=== PATIENT | male | born 1970 | race Caucasian/White ===

== ENCOUNTER 2021-02-28 05:08 | Inpatient (IN) ==
--- NOTE | 2021-02-24 11:24 | Anesthesiology Consultation ---
Date of Service February 24, 2021 Assessment & Plan (1) Encounter for pre-operative examination: - Check BSG AM DOS Per nursing assessment 02/22/2021, patient denies any recent travel other than local travel. No known Covid infection in the past 90 days. Patient is vaccinated for Covid. No known Covid positive contacts or Covid related symptoms. Covid test 02/24/21= results pending Chart Review Chart Review: Acceptable Risk for Surgery (pending anesthesiologist review on unconfirmed EKG (no acute issues by personal visual inspection) and preop Covid testing results ) and Patient NOT seen in Pre Admission Testing History Surgery Operation Date: 02/28/21 07:15 Proposed Procedures p Removal of Hardware Posterior L4-S1, Posterior Lumbar Decompression and Fusion L2-L4, Assesment of Fusion Mass L4-S1 with Possible Revision Fusion, Local Autograft, Allograft - Tino Hood MD Height/Weight Height: 5 ft 7 in Weight: 122.47 kg Allergies Allergy/AdvReac Type Severity Reaction Status Date / Time No Known Allergies Allergy Unknown Verified 02/22/21 16:31 Medications Home Medications Medication Instructions Recorded Confirmed Last Taken atenolol 50 mg tablet 50 mg PO BID 08/02/20 02/22/21 Unknown atorvastatin 20 mg tablet 20 mg PO QPM 08/02/20 02/22/21 Unknown cimetidine 400 mg tablet 400 mg PO BID 08/02/20 02/22/21 Unknown duloxetine 60 mg capsule,delayed 60 mg PO QPM 08/02/20 02/22/21 Unknown release gabapentin 300 mg capsule 600 mg PO HS cap 08/02/20 02/22/21 Unknown meloxicam 7.5 mg tablet (Mobic) 15 mg PO HS 08/02/20 02/22/21 Unknown tapentadol 150 mg tablet,extended 150 mg PO BID 08/02/20 02/22/21 Unknown release,12 hr (Nucynta ER) tizanidine 4 mg capsule 4 mg PO HS 08/02/20 02/22/21 Unknown gabapentin 300 mg tablet 300 mg PO QAM 02/22/21 02/22/21 Unknown lisinopril 20 1 tab PO QAM 02/22/21 02/22/21 Unknown mg-hydrochlorothiazide 25 mg tablet metformin 1,000 mg tablet 1,000 mg PO BID 02/22/21 02/22/21 Unknown Past Medical History Medical History Chronic back pain Diabetes NIIDM High blood pressure High cholesterol Morbid obesity with BMI of 40.0-44.9, adult Nausea and vomiting after administration of anesthetic agent Neurogenic claudication due to lumbar spinal stenosis Sleep apnea cpap Umbilical hernia Past Family History Family History Other No family history of adverse response to anesthesia Past Surgical History Surgical History History of lumbar spinal fusion x2--2003/2004 History of placement of ear tubes History of shoulder surgery (~1997) right History of spinal fusion History of tooth extraction partial upper/lower Hx of vasectomy Status post correction of deviated nasal septum Social History Smoking Status: Never smoker Do You Dip or Chew Tobacco: No (quit 4 yrs ago) Hx Alcohol Use: Yes alcohol intake frequency: holidays/special occasions only Hx Substance Use: No substance use type: does not use Lab Results Anesthesia Preop Results Results Anesthesia Widget: WBC 6.21 K/uL (4.8-10.8) 02/24/21 Hgb 15.2 g/dL (14.0-18.0) 02/24/21 Hct 43.2 % (42-52) 02/24/21 Plt 187 K/uL (130-400) 02/24/21 Na 140 mmol/L (136-145) 02/24/21 K 4.1 mmol/L (3.5-5.1) 02/24/21 Cl 106 mmol/L (98-107) 02/24/21 CO2 28 mmol/L (21-32) 02/24/21 BUN 16 mg/dl (7-18) 02/24/21 Creat 0.79 mg/dl (0.6-1.4) 02/24/21 Glucose Level 153 mg/dl (70-99) H 02/24/21 Blood Type A Positive 02/24/21 Antibody Screen NEGATIVE 02/24/21 Testing Electrocardiogram Date: 02/24/21 Findings: + NSR @ (67bpm ) unconfirmed
[2021-02-28] MEDS ORDERED: LR 60ML/HR IV SCH (06:00)
[2021-02-28] MEDS ORDERED: LR 15ML/HR IV SCH (06:00)
[2021-02-28] MEDS ORDERED: TRANEXAMIC ACID / 0.7% NACL 1,000 MG/100 ML BAG IV SCH (06:00)
[2021-02-28] MEDS ORDERED: TRANEXAMIC ACID 1,000 MG **IV Pre-op IV SCH (06:00)
[2021-02-28] MEDS ORDERED: MIDAZOLAM HCL 1 MG/ML 2ML VIAL ONE (06:45)
[2021-02-28] MEDS ORDERED: fentaNYL citrate 100 MCG/2 ML VIAL ONE ×5 (06:45→16:53)
[2021-02-28] MEDS ORDERED: ONDANSETRON INJ 2 MG/ML 2 ML VIAL IV PRN ×2 (06:47→18:07)
[2021-02-28] MEDS ORDERED: HYDROmorphone INJ 2 MG/ML SYR/VIAL IV PRN (06:47)
[2021-02-28] MEDS ORDERED: ePHEDrine sulfate 50 MG/ML AMP IV PRN (06:47)
[2021-02-28] MEDS ORDERED: ATROPINE SULFATE 0.1 MG/ML 10ML SYR IV PRN (06:47)
[2021-02-28] MEDS ORDERED: PROPOFOL IV EMULSION 10 MG/ML 20 ML VIAL IV ONE (06:50)
[2021-02-28] MEDS ORDERED: ROCURONIUM BROMIDE 10 MG/ML 5 ML VIAL IV ONE ×10 (06:50→10:14)
[2021-02-28] MEDS ORDERED: LIDOCAINE 2% 2 ML VIAL/AMP(20MG/ML) INFIL ONE (06:50)
[2021-02-28] MEDS ORDERED: DEXAMETHASONE SOD INJ 4 MG/ML VIAL ONE (06:54)
[2021-02-28] MEDS ORDERED: ONDANSETRON INJ 2 MG/ML 2 ML VIAL ONE ×2 (06:54→12:23)
--- NOTE | 2021-02-28 06:55 | History & Physical Bridge Note ---
Date of Service February 28, 2021 History & Physical Bridge Note I have examined the patient, reviewed the History & Physical and in the interval since the performance of the History & Physical I have noted the following changes of clinical significance: no changes noted New changes compared to last appointment: nil Musculoskeletal: 5/5 motor strength bilateral L2-S1 except right L2 4/5, left L5 4/5, right S1 4/5, left S1 4+/5. Neurologic: Sensation intact to light touch bilateral L2-S1 except right S1 1/2. Patient marked for surgery. All new questions about procedure answered. Informed consent confirmed
[2021-02-28] MEDS ORDERED: TRANEXAMIC ACID / 0.7% NACL 1000MG/100ML BAG IV ONE (06:57)
[2021-02-28] MEDS ORDERED: GELATIN SPONGE 12-7MM ONE ×2 (07:03→13:46)
[2021-02-28] MEDS ORDERED: THROMBIN FOR SOLN 20000 UNIT KIT ONE (07:03)
[2021-02-28] MEDS ORDERED: VANCOMYCIN HCL 1000MG/20ML VIAL ONE ×2 (07:03→14:31)
[2021-02-28] MEDS ORDERED: HYDROmorphone INJ 1 MG/ML SYRINGE ONE (08:28)
[2021-02-28] MEDS ORDERED: ePHEDrine sulfate 50 MG/ML SYR ONE (08:37)
[2021-02-28] MEDS ORDERED: PHENYLEPHRINE 100MCG/ML 5ML SYR ONE (09:53)
[2021-02-28] MEDS ORDERED: ALBUMIN HUMAN 5% 12.5 GM/250 ML VIAL IV ONE (10:27)
[2021-02-28] MEDS ORDERED: PHENYLEPHRINE HCL 10 MG/ML VIAL ONE (10:38)
[2021-02-28 11:35] LABS: Basophils # (auto) 0.05 K/uL (0-0.2); Basophils % (auto) 0.5 %; Eosinophils # (auto) 0.04 K/uL (0-0.5); Eosinophils % (auto) 0.4 %; Hematocrit (blood only) 35.9 % (42-52); Hemoglobin 12.1 g/dL (14.0-18.0); Immature Granulocytes # (auto) 0.06 K/uL (0.00-0.02); Immature Granulocytes % (auto) 0.6 %; Lymphocytes # (auto) 1.24 K/uL (1.2-3.4); Lymphocytes % (auto) 13.3 %; Mean Corpuscular Volume 86.1 fL (80-100); Mean Platelet Volume 11.7 fL (7.4-10.4); Monocytes # (auto) 0.18 K/uL (0.11-0.59); Monocytes % (auto) 1.9 %; Neutrophils # (auto) 7.72 K/uL (1.4-6.5); Neutrophils % (auto) 83.3 %; Platelet Count 232 K/uL (130-400); RDW Coefficient of Variation 13.1 % (11.5-14.5); RDW Standard Deviation 41.2 fL (36.4-46.3); Red Blood Count 4.17 M/uL (4.7-6.1); White Blood Count 9.29 K/uL (4.8-10.8)
[2021-02-28 11:36] LABS: Mean Corpuscular Hgb Conc 33.7 g/dL (32-36)
[2021-02-28] MEDS ORDERED: SODIUM CHLORIDE 0.9% INJ 10 ML VIAL ONE (11:42)
[2021-02-28] MEDS ORDERED: FLOSEAL HEMOSTATIC MATRIX 10ML TOP ONE (11:49)
[2021-02-28 11:50] LABS: INR 1.1 (0.9-1.1); Partial Thromboplastin Ratio 0.8; Partial Thromboplastin Time 22.1 Seconds (21.0-31.0); Prothrombin Time 10.9 Seconds (9.0-12.0)
--- NOTE | 2021-02-28 13:09 | XRay Report ---
XR lumbar spine 1V HISTORY: 50 years-old Male PORTABLE SPINE XRAY IN OR COMPARISON: Lumbar spine radiographs 08/16/2020, CT lumbar spine 08/23/2020. TECHNIQUE: 5 views of the lumbar spine FINDINGS: Posterior interbody sandra and screw fusion with discectomy changes are redemonstrated at the L4-S1 leve ls. A catheter overlies the anterior aspects of the L1-L2 disc space on the first image. Linear metal lic density needle type devices overlie the posterior elements at the level of the L1-L2 and at S1-S2 . Subsequent images demonstrate retractor devices with surgical sponges. Last images demonstrate post erior interbody screws at the L1 and L2 levels with removal of the lower lumbar spine interbody rods. The last images demonstrate a persistent surgical sponge within the posterior surgical bed soft tiss ues at the level of L5-S1. IMPRESSION: Postoperative changes as above. ACT 112: Negative or not required by law. The above report was generated using voice recognition software. It may contain grammatical, syntax o r spelling errors. Electronically signed by: David Betancourt M.D. 02/28/2021 1:08 PM
[2021-02-28] MEDS ORDERED: KETAMINE 50 MG/5 ML SYRINGE ONE (13:12)
[2021-02-28 13:39] LABS: iSTAT Creatinine 0.8 mg/dl (0.6-1.3); iSTAT Hemoglobin 10.5 g/dl (14.0-18.0); iSTAT Ionized Calcium 1.12 mmol/l (1.12-1.32); iSTAT Potassium 4.7 mmol/L (3.3-5.0)
[2021-02-28] MEDS ORDERED: ceFAZolin 3,000 MG in DEXTROSE 5% 50 ML IV ONE (15:51)
--- NOTE | 2021-02-28 16:31 | Post Operative Brief Note ---
PG Immediate Post Op with CF Date of Surgery February 28, 2021 Pre & Post Diagnosis Operation Date: 02/28/21 07:15 Pre-Op Diagnosis: Neurogenic Claudication Post-Op Diagnosis: Neurogenic Claudication I identified the patient and participated in the time-out.: Yes Procedure Operation Date: 02/28/21 07:15 Actual Procedures p POSTERIOR LUMBAR DECOMPRESSION L2-L4, REMOVAL OF HARDWARE L4-S1, REVISION POSTERIOR LUMBAR FUSION L2-S1(Not Applicable) - Tino Hood MD Surgeon Tino Hood MD Light Fixture Servicer Khoa Sosa PA-C Estimated Blood Loss 1,900 Findings Consistent with Post-Op Diagnosis Drains Gomes Catheter and Jeffry-Gordillo Drain (10fr round x2)
[2021-02-28 16:53] LABS: Hematocrit (blood only) 39.3 % (42-52); Hemoglobin 13.1 g/dL (14.0-18.0)
[2021-02-28] MEDS: fentaNYL citrate 100 MCG/2 ML VIAL IV PRN ×2 (16:59→17:05)
--- NOTE | 2021-02-28 17:27 | Anesthesiology Progress Note ---
Date of Service February 28, 2021 Anesthesia Post Procedure Vital Signs Vital Signs: Temp Pulse Pulse Resp BP BP BP 02/28/21 17:20 107 H 20 137/62 141/79 H 02/28/21 17:10 112 H 19 135/78 123/76 02/28/21 17:00 106 H 13 164/85 H 145/76 H 02/28/21 16:50 105 H 17 155/82 H 143/87 H 02/28/21 16:40 115 H 16 133/74 131/69 02/28/21 16:30 109 H 21 126/70 140/64 02/28/21 16:24 36.1 C L 120 H 20 120/66 02/28/21 05:36 36.9 C 73 20 156/98 H Pulse Ox 02/28/21 17:20 95 02/28/21 17:10 96 02/28/21 17:00 95 02/28/21 16:50 96 02/28/21 16:40 99 02/28/21 16:30 98 02/28/21 16:24 99 02/28/21 05:36 95 Pain Intensity Right Lower Back: Pain Intensity: 5 Transfer of Care Handoff Completed per policy Notes Mental Status: alert / awake / arousable Patient Amnestic to Procedure: Yes Nausea / Vomiting: adequately controlled Pain: adequately controlled Airway Patency, RR, SpO2: stable & adequate BP & HR: stable & adequate Hydration State: stable & adequate Anesthetic Complications: no major complications apparent
[2021-02-28] MEDS ORDERED: hydrOXYzine HCl 25 MG TAB PO PRN (18:07)
[2021-02-28] MEDS ORDERED: DO NOT ADMINISTER PNEUMOCOCCAL VACCINE PRN (18:07)
[2021-02-28] MEDS ORDERED: diphenhydrAMINE Capsule 25 MG CAP PO PRN (18:07)
[2021-02-28] MEDS ORDERED: ONDANSETRON 4 MG OD TAB PO PRN (18:07)
[2021-02-28] MEDS ORDERED: SOD PHOSPHATE/SOD BIPHOSPHATE ENEMA 132 ML BTL PR PRN (18:07)
[2021-02-28] MEDS ORDERED: PROMETHAZINE HCL 12.5 MG in SODIUM CHLORIDE 0.9% 50 ML IV PRN (18:07)
[2021-02-28] MEDS ORDERED: METOCLOPRAMIDE HCL INJ 5 MG/ML 2 ML VIAL IV PRN (18:07)
[2021-02-28] MEDS ORDERED: MAGNESIUM HYDROXIDE SUSP 30 ML UDC PO PRN (18:07)
[2021-02-28] MEDS ORDERED: ACETAMINOPHEN 500 MG TAB PO PRN (18:07)
[2021-02-28] MEDS ORDERED: NALOXONE HCL 0.4 MG/1 ML VIAL/CARP IV PRN (18:07)
[2021-02-28] MEDS ORDERED: LORazepam 0.5 MG/1 ML VIAL IV PRN (18:07)
[2021-02-28] MEDS ORDERED: LORazepam 0.5 MG TAB PO PRN (18:07)
[2021-02-28] MEDS ORDERED: ACETAMINOPHEN 1,000 MG/100 ML VIAL IV PRN (18:07)
[2021-02-28] MEDS ORDERED: DO NOT ADMINISTER FLU VACCINE PRN (18:07)
[2021-02-28] MEDS ORDERED: ALUMINUM/MAGNESIUM SUSP 30 ML UDC PO PRN (18:07)
[2021-02-28] MEDS ORDERED: PHARMACY GLYCEMIC MGMT CONSULT PRN (18:10)
[2021-02-28] MEDS: LACTATED RINGER'S 1,000 ML IV SCH (18:23)
[2021-02-28] MEDS ORDERED: GLUCAGON FOR INJ 1 MG VIAL IM PRN (19:00)
[2021-02-28] MEDS ORDERED: GLUCOSE 40% GEL 15 GM TUBE PO PRN (19:00)
[2021-02-28] MEDS ORDERED: GLUCOSE 10 TABS/TUBE PO PRN (19:00)
[2021-02-28] MEDS ORDERED: DEXTROSE 50% 50 ML SYRINGE IV PRN (19:00)
[2021-02-28] MEDS ORDERED: CARBOHYDRATES FOR HYPOGLYCEMIA PO PRN (19:00)
[2021-02-28] MEDS ORDERED: INSULIN GLARGINE SOLOSTAR 100 UNITS/ML 3 ML PEN SC ONE (19:15)
[2021-02-28] MEDS: HYDROmorphone INJ 0.5 MG/0.5 ML SYR IV PRN (19:15)
[2021-02-28] MEDS: INSULIN ASPART 100 UNITS/ML 3 ML PEN SC SCH ×2 (19:51→21:59)
--- NOTE | 2021-02-28 20:06 | Pharmacy Report ---
Pharmacy Glycemic Short Note 2 - Date of Service February 28, 2021 - Glycemic Short BSG Results (Last 24 hours): 02/28/21 02/28/21 02/28/21 05:28 13:13 19:06 POC Glucose 142 H 249 H POC Glucose (other) 264 H OUTPATIENT ANTIDIABETIC REGIMEN: * metformin 1000 mg PO BIDM * HbA1c ordered for tomorrow AM ASSESSMENT: * SW is a 50 year old male pod #0 s/p lumbar decompression * Received IV dexamethasone in OR * Postop BSG of 249 mg/dL * Will use aggressive Novolog parameters with overnight checks tonight * 0.4 unit/kg basal today to help cover steroids PLAN FOR INPATIENT GLYCEMIC CONTROL: * Hold outpatient oral diabetes medications * Basal insulin * Lantus 35 units SQ x 1 * Reassess in AM * Bolus insulin * NovoLog per scale ACHS or Q6hrs while NPO * Goal Range: Low 110 mg/dL - High 140 mg/dL * Correction Factor: 20 mg/dL/unit * Nutritional / Prandial insulin per carb ratio of 1 unit per 5 grams CHO consumed PLAN FOR DISCHARGE: * tbd - HbA1c pending
[2021-02-28] MEDS: GABAPENTIN 600 MG TAB PO SCH (20:38)
[2021-02-28] MEDS: DULoxetine HCL 60 MG CAP PO SCH (20:38)
[2021-02-28] MEDS: CALCIUM 600MG + VIT D 400 IU TAB PO SCH (20:38)
[2021-02-28] MEDS: DOCUSATE SODIUM/SENNA 50/8.6MG TAB PO SCH (20:38)
[2021-02-28] MEDS: ATENOLOL 50 MG TABLET PO SCH (20:39)
[2021-02-28] MEDS: ATORVASTATIN 20 MG TAB PO SCH (20:39)
[2021-02-28] MEDS: TAPENTADOL HCL ER 50 MG TABCR PO SCH (20:42)
[2021-02-28] MEDS ORDERED: tiZANidine HCL 4 MG TABLET PO SCH (21:00)
[2021-02-28] MEDS ORDERED: metFORMIN HCL 500 MG TAB PO SCH (21:00)
[2021-02-28] MEDS: CYCLOBENZAPRINE HCL 10 MG TAB PO SCH (21:59)
[2021-02-28] MEDS: ceFAZolin 2000MG 2,000 MG/15 ML SYR IV SCH (23:21)
--- NOTE | 2021-03-01 00:36 | Consultation Report ---
DATE OF CONSULTATION: 02/28/2021 CHIEF COMPLAINT: Status post back surgery. HISTORY OF PRESENT ILLNESS: This is a 50-year-old male with past medical history significant for type 2 diabetes, hyperlipidemia, testosterone deficiency, obstructive sleep apnea -- treated with BiPAP, hypertension, morbid obesity, nocturnal enuresis, history of bilateral lower back pain, history of periodic limb movement disorder, history of umbilical hernia, status post back surgery, tolerated the procedure okay, some pain at the back site. Denies any headache or neck pain. No blurred visions, no cough, no chest pain, no shortness of breath, no nausea, no abdominal pain. Says he moved his bowels yesterday, usually he is constipated because of using pain medications at home .Normal bladder movements. Currently, resting comfortably and hemodynamically stable. ALLERGIES: No known drug allergies. PAST MEDICAL HISTORY: As mentioned above. PAST SURGICAL HISTORY: Lumbosacral injection, right knee arthroscopy, multiple back surgeries, rotator cuff shoulder surgery. MEDICATIONS: The patient is on atenolol 50 mg p.o. b.i.d., atorvastatin 20 mg p.o. daily, cimetidine 400 mg p.o. b.i.d., duloxetine 60 mg p.o. a.m., gabapentin 300 mg p.o. a.m. and 600 mg p.o. at bedtime, lisinopril/hydrochlorothiazide 20/25 mg p.o. daily, meloxicam 7.5 mg p.o. at bedtime, metformin 1000 mg p.o. b.i.d., Nucynta 150 mg p.o. b.i.d., tizanidine 4 mg p.o. at bedtime, vitamin B12 1000 mcg p.o. daily, vitamin D 1 tablet p.o. b.i.d. FAMILY HISTORY: Significant for mother has cirrhosis, alcoholism and COPD; father had heart disorder; maternal grandmother had colon cancer; son has asthma; father has mental disorder; sister has mental disorder. SOCIAL HISTORY: . No smoking. Chews one can a day. No alcohol use. No drug use. REVIEW OF SYSTEMS: As per HPI. Rest of the review of systems is negative. PHYSICAL EXAMINATION: GENERAL: The patient is morbidly obese, not in acute distress. VITAL SIGNS: Temperature 37.1, pulse 105, respiratory rate 25, blood pressure 110/72, oxygen 94% on room air. HEENT: Atraumatic. NECK: No neck masses. Supple. CARDIOVASCULAR: S1 and S2 heard. Regular rate and rhythm. No murmur, no gallop. RESPIRATORY SYSTEM: Normal AP diameter. No accessory muscle use. No wheezing, no crackles. ABDOMEN: Soft, bowel sounds present, nontender, no distention. CENTRAL NERVOUS SYSTEM: Cranial nerves II-XII grossly intact, nonfocal. EXTREMITIES: No edema, no erythema. MUSCULOSKELETAL: Status post back surgery, dressings and drain intact. LABORATORY DATA: Labs done today, WBC 9.2, hemoglobin 13.1, hematocrit 39.3, platelets 232. PT 10.9, INR 1.1, APTT 22.1. Sodium 139, potassium 4.7, chloride 101, bicarbonate 23, BUN 23, creatinine 0.8, serum glucose 272, ionized calcium 1.1. SARS-CoV-2 PCR negative. ASSESSMENT AND PLAN: This is a 50-year-old male patient status post back surgery. 1. Status post back surgery: Management as per orthopedics. 2. Diabetes: Holding home metformin. Place him on insulin sliding scale and also Lantus 7 units daily. Monitor the blood sugars and adjust insulin. 3. Morbid obesity: Needs counseling. 4. History of sleep apnea: On BiPAP at bedtime. 5. History of gastroesophageal reflux disease: On cimetidine. 6. History of hyperlipidemia: On statin. 7. History of hypertension: On atenolol, lisinopril/hydrochlorothiazide. We will monitor his blood pressure. 8. History of chronic pain: Continue his home pain medications of Nucynta, tizanidine, and gabapentin. 9. Deep venous thrombosis prophylaxis and disposition as per orthopedics. Job ID: [id number] [facility]
[2021-03-01] MEDS ORDERED: INSULIN ASPART 100 UNITS/ML 3 ML PEN SC SCH (02:00)
[2021-03-01] MEDS: LACTATED RINGER'S 1,000 ML IV SCH (04:04)
[2021-03-01] MEDS: POLYETHYLENE (MIRALAX) 17 GM PACK PO SCH ×4 (06:21→20:47)
[2021-03-01] MEDS: CYCLOBENZAPRINE HCL 10 MG TAB PO SCH (06:23)
[2021-03-01 06:43] LABS: Hematocrit (blood only) 33.6 % (42-52); Hemoglobin 11.4 g/dL (14.0-18.0); Immature Granulocytes # (auto) 0.07 K/uL (0.00-0.02); Immature Granulocytes % (auto) 0.5 %; Lymphocytes % (auto) 8.3 %; Mean Corpuscular Hemoglobin 29.2 pg (25-34); Mean Corpuscular Hgb Conc 33.9 g/dL (32-36); Mean Corpuscular Volume 86.2 fL (80-100); Mean Platelet Volume 11.1 fL (7.4-10.4); Monocytes # (auto) 1.85 K/uL (0.11-0.59); Monocytes % (auto) 12.8 %; Neutrophils # (auto) 11.31 K/uL (1.4-6.5); Neutrophils % (auto) 78.4 %; Platelet Count 166 K/uL (130-400); RDW Coefficient of Variation 13.7 % (11.5-14.5); White Blood Count 14.43 K/uL (4.8-10.8)
--- NOTE | 2021-03-01 06:45 | Orthopedic Progress Note ---
Date of Service March 01, 2021 Assessment & Plan (1) Status post spinal surgery: Plan: PT for mobility standing x-rays when able drain to be monitored today, possible removal tomorrow d/c home once mobilizing well and drains out Admission and Anticipated Discharge Date Admission Date: February 28, 2021 Subjective pain well controlled. used minimal narcotics overnight no new numbness/weakness Hgb pending this AM Glucose 272 yesterday evening, pharmacy diabetes team involved hospitalist following Physical Exam Physical Exam: vitals: see vital signs section; on home BiPAP overnight dressing: mild serosang discharge drain: 50 deep/5 superficial cc/8hr vascular: no calf tenderness or swelling bilaterally. no signs of DVT Musculoskeletal: 5/5 motor strength bilateral L2-S1 except right L2 4/5, left L5 4/5, right S1 4/5, left S1 4+/5. Neurologic: Sensation intact to light touch bilateral L2-S1 except right S1 1/2. Results & Data ([facility]) Vital Signs (Past 12 Hours) Vital Signs Temp Pulse Pulse Resp BP Pulse Ox 03/01/21 03:22 37.5 C 86 17 135/79 96 03/01/21 03:08 97 H 16 95 02/28/21 22:45 105 H 25 H 94 02/28/21 22:29 37.1 C 109 H 18 110/72 94 02/28/21 21:00 37 C 118 H 141/79 H 97 02/28/21 20:00 37 C 118 H 143/79 H 96 02/28/21 19:00 37.1 C 106 H 18 142/88 H 96 Diagnostic Findings post-op x-rays pending PG Care Time/CCT Total # of Minutes Spent Total Time Spent with Patient: Total time spent is greater than 50% in coordination of care (as documented) at patient's floor/unit and/or counseling patient: Coding Level of Care Code None Diagnoses Status post spinal surgery Z98.890
[2021-03-01 07:15] LABS: Calcium 8.8 mg/dl (8.5-10.1); Creatinine Clr Calc Pharmacy 147.3 ml/min; Est GFR (African American) 124.2 ml/min; Est GFR (Non-African American) 107.1 ml/min; Potassium 4.3 mmol/L (3.5-5.1)
[2021-03-01 07:23] LABS: Estimated Average Glucose 186 mg/dl; Hemoglobin A1C 8.1 % (4.5-5.6)
[2021-03-01] MEDS: ceFAZolin 2000MG 2,000 MG/15 ML SYR IV SCH (08:06)
[2021-03-01] MEDS: LISINOPRIL/HCTZ 20/25MG 1 TAB PO SCH (08:07)
[2021-03-01] MEDS: FAMOTIDINE 20 MG TAB PO SCH ×2 (08:07→18:04)
[2021-03-01] MEDS: CALCIUM 600MG + VIT D 400 IU TAB PO SCH ×2 (08:07→20:43)
[2021-03-01] MEDS: ATENOLOL 50 MG TABLET PO SCH ×2 (08:07→20:43)
[2021-03-01] MEDS: VITAMIN B COMPLEX TAB PO SCH (08:07)
[2021-03-01] MEDS ORDERED: INSULIN GLARGINE SOLOSTAR 100 UNITS/ML 3 ML PEN SC SCH ×2 (09:00)
--- NOTE | 2021-03-01 09:12 | XRay Report ---
XR lumbar spine 2-3V CLINICAL HISTORY: post-op spine surgery; standing views when able COMPARISON STUDY: Lumbar spine radiograph February 28, 2021. FINDINGS: Previous L4-L5 and L5-S1 discectomies with interbody spacer placement are noted. Lumbar spi ne revision surgery is noted. Pedicle screw fusion from L2 through S1 is noted. There are bilateral s crews at the L2, L3, L4 and S1 levels with a right-sided screw at the L5 level. Left sandra is intact. T he right sandra does not extend through the L5 and S1 screws. There is no fracture. There are no unexpec mary radiopaque foreign bodies. IMPRESSION: Status post revision lumbar spine surgery with posterior decompression and L2-S1 pedicle screw fusion . Left sandra intact. The right sandra does not extend through the L5 and S1 screws. ACT 112: Negative or not required by law. Electronically signed by: Juan Manuel Garcia M.D. 03/01/2021 9:11 AM
[2021-03-01] MEDS: INSULIN ASPART 100 UNITS/ML 3 ML PEN SC SCH ×4 (09:36→20:44)
[2021-03-01] MEDS: TAPENTADOL HCL ER 50 MG TABCR PO SCH ×2 (09:36→20:58)
[2021-03-01] MEDS: GABAPENTIN 300 MG CAP PO SCH (10:48)
[2021-03-01] MEDS: HYDROmorphone INJ 0.5 MG/0.5 ML SYR IV PRN (10:57)
--- NOTE | 2021-03-01 12:21 | Hospitalist Progress Note ---
Date of Service March 01, 2021 Assessment & Plan (1) Neurogenic claudication due to lumbar spinal stenosis: (2) Status post spinal surgery: Plan: s/p lumbar decompression by Dr. Hood EBL 1900 POD #1 -pain/wound management per Ortho -VTE prophylaxis per Ortho, encourage early ambulation -incentive spirometry encouraged -CBC, BMP in am -PT/OT and activity restrictions per Ortho (3) DMII (diabetes mellitus, type 2): Plan: Post-operative hyperglycemia noted as a result of intraoperative dexamethasone administration. Aggressive checks and insulin coverage occurred overnight with basal/bolus insulin and he is coming down into the appropriate range. Cont management per glycemic pharmacist. A1C reflects poor control as outpatient at 8.1 with goal <6.5. Would recommend close follow-up with primary care physician as outpatient to discuss goals and recommendations for any medication changes. (4) High blood pressure: Plan: At goal on home medications to include atenolol 50mg BID, Prinzide 20/25mg daily. Cont current therapy. (5) Chronic narcotic dependence: Plan: Cont scheduled Tapentadol q12hrs per home regimen. PRN oxycodone. There is concern regarding the scheduled muscle relaxers and scheduled narcotics. Would recommend making the muscle relaxers PRN to avoid medication interactions. Cont aggressive bowel regimen post-operatively until bowel movements occur. (6) High cholesterol: Plan: Cont home atorvastatin. (7) MECHE (obstructive sleep apnea): Plan: Cont CPAP qHS (8) DVT prophylaxis: Plan: SCDs/ambulation Full Code Dispo-per Ortho spine surgeon Thank you for this consultation. We will continue to follow with the patient t hroughout this hospital stay. Anna Michael DO [facility] Hospitalist Admission and Anticipated Discharge Date Admission Date: February 28, 2021 Subjective 50 yo M with diabetes, hypertension and hyperlipidemia presents for posterior lumbar decompression by Dr. Hood. He is POD#1 and feelin well. Pain appears to be well managed w medications. He reports walking and tolerating PO. Review of Systems Review of Systems: All systems were reviewed and negative except as indicated in HPI above. Physical Exam Physical Exam: CONSTITUTIONAL: WNWD, vitals as above, generally well- appearing EYES: normal conjunctivae, no scleral icterus ENT: external ear and nose normal, MMM NECK: trachea midline RESPIRATORY: clear to auscultation bilaterally, no crackles, rales or wheezes, normal respiratory effort CARDIOVASCULAR: regular rate and rhythm, S1 and 2 heard without murmurs, gal lops or rubs, no JVD, no peripheral edema GASTROINTESTINAL: soft, nontender, no hepatomegaly, no guarding MUSCULOSKELETAL: strength intact throughout SKIN: warm and dry, no rashes NEUROLOGIC: extremities are NVI bilateral, CN 2-12 grossly intact, no sensory deficit, normal cognition, normal speech, no tremor PSYCHIATRIC: alert cooperative and oriented to person, place and time. Euthymic mood, makes good eye contact, language grossly intact, recent and remote memory grossly intact. LYMPHATIC: no LAD Results & Data Results & Data ([facility]) Vital Signs (Past 12 Hours) Vital Signs Temp Pulse Pulse Resp BP BP Pulse Ox 03/01/21 11:36 37.5 C 98 H 16 131/72 92 03/01/21 08:02 36.7 C 92 H 16 156/83 H 95 03/01/21 03:22 37.5 C 86 17 135/79 96 03/01/21 03:08 97 H 16 95 Laboratory Results Short CBC 02/28/21 03/01/21 Range/Units 16:41 06:14 WBC 14.43 H (4.8-10.8) K/uL Hgb 13.1 L 11.4 L (14.0-18.0) g/dL Hct 39.3 L 33.6 L (42-52) % Plt Count 166 (130-400) K/uL BMP 03/01/21 06:14 Sodium 137 Potassium 4.3 Chloride 108 H Carbon Dioxide 24 BUN 19 H Creatinine 0.76 Glucose 167 H Calcium 8.8 Medications Administered Current Inpatient Medications Acetaminophen (Acetaminophen 500 Mg Tab) 1,000 mg PO Q8H PRN PRN Reason: MILD Pain Scale 1,2,3 & Pre PT Stop: 03/30/21 18:06 Al Hydrox/Mg Hydrox/Simethicone (Aluminum/Magnesium Susp 30 Ml Udc) 30 ml PO Q6H PRN PRN Reason: Dyspepsia Stop: 03/30/21 18:06 Atenolol (Atenolol 50 Mg Tablet) 50 mg PO BID JANINE Stop: 03/30/21 20:59 Last Admin: 03/01/21 08:07 Dose: 50 mg Documented by: Atorvastatin Calcium (Atorvastatin 20 Mg Tab) 20 mg PO QPM JANINE Stop: 03/30/21 20:59 Last Admin: 02/28/21 20:39 Dose: 20 mg Documented by: Bisacodyl (Bisacodyl 10 Mg Supp) 10 mg MA DAILY PRN PRN Reason: Constipation Stop: 04/01/21 07:59 Cyclobenzaprine HCl (Cyclobenzaprine Hcl 10 Mg Tab) 10 mg PO Q8 JANINE Stop: 03/30/21 21:59 Last Admin: 03/01/21 06:23 Dose: 10 mg Documented by: Dextrose (Dextrose 50% 50 Ml Syringe) 25 - 50 ml IV UD PRN; Protocol PRN Reason: Hypoglycemia Protocol Stop: 03/30/21 18:59 Diphenhydramine HCl (Diphenhydramine Capsule 25 Mg Cap) 25 mg PO Q6H PRN PRN Reason: Allergic Rhinitis/Insomnia Stop: 03/30/21 18:06 Duloxetine HCl (Duloxetine Hcl 60 Mg Cap) 60 mg PO QPM JANINE Stop: 03/30/21 20:59 Last Admin: 02/28/21 20:38 Dose: 60 mg Documented by: Famotidine (Famotidine 20 Mg Tab) 20 mg PO BIDM JANINE; Protocol Stop: 03/31/21 07:59 Last Admin: 03/01/21 08:07 Dose: 20 mg Documented by: Gabapentin (Gabapentin 600 Mg Tab) 600 mg PO HS [facility] Stop: 03/30/21 20:59 Last Admin: 02/28/21 20:38 Dose: 600 mg Documented by: Gabapentin (Gabapentin 300 Mg Cap) 300 mg PO QAM [facility] Stop: 03/31/21 08:59 Last Admin: 03/01/21 10:48 Dose: 300 mg Documented by: Glucagon (Glucagon For Inj 1 Mg Vial) 1 mg IM UD PRN; Protocol PRN Reason: Hypoglycemia Protocol Stop: 03/30/21 18:59 Glucose (Glucose 40% Gel 15 Gm Tube) 15 - 30 gm PO UD PRN; Protocol PRN Reason: Hypoglycemia Protocol Stop: 03/30/21 18:59 Glucose (Glucose 10 Tabs/Tube) 4 - 8 tabs PO UD PRN; Protocol PRN Reason: Hypoglycemia Protocol Stop: 03/30/21 18:59 Lisinopril/HCTZ (Lisinopril/Hctz 20/25mg 1 Tab) 1 tab PO QAM [facility] Stop: 03/31/21 08:59 Last Admin: 03/01/21 08:07 Dose: 1 tab Documented by: Hydromorphone HCl (Hydromorphone Inj 0.5 Mg/0.5 Ml Syr) 0.5 mg IV Q3H PRN PRN Reason: MOD pain (scale 4-6) & Pre PT Stop: 03/14/21 18:06 Last Admin: 03/01/21 10:57 Dose: 0.5 mg Documented by: Hydroxyzine HCl (Hydroxyzine Hcl 25 Mg Tab) 25 mg PO Q8H PRN PRN Reason: Anxiety Stop: 03/30/21 18:06 Lactated Ringer's (Lr) 1,000 mls @ 100 mls/hr IV .Q10H JANINE Stop: 03/30/21 18:06 Last Admin: 03/01/21 04:04 Dose: 100 mls/hr Documented by: Promethazine HCl 12.5 mg/ (Sodium Chloride) 50.5 mls @ 202 mls/hr IV Q6H PRN PRN Reason: Nausea &/or Vomiting Stop: 03/30/21 18:06 Acetaminophen (Ofirmev) 1,000 mg in 100 mls @ 400 mls/hr IV Q8H PRN PRN Reason: Pain Rating 1-3 & Pre PT Stop: 03/03/21 18:06 Lorazepam (Ativan) 0.5 mg in 1 mls @ 1 mls/min IV Q8H PRN PRN Reason: Sedation/Anxiety Stop: 03/30/21 18:06 Influenza Virus Vaccine Quadrival (Do Not Administer Flu Vaccine) 1 ea N/A PRN PRN PRN Reason: Notification Stop: 03/30/21 18:06 Insulin Aspart (Insulin Aspart 100 Units/Ml 3 Ml Pen) 0 units SC ACHS [facility] Stop: 03/31/21 07:29 Last Admin: 03/01/21 09:36 Dose: 11 units Documented by: Insulin Glargine (Insulin Glargine Solostar 100 Units/Ml 3 Ml Pen) 12 units SC DAILY JANINE Stop: 03/31/21 08:59 Last Admin: 03/01/21 09:37 Dose: 12 units Documented by: Lorazepam (Lorazepam 0.5 Mg Tab) 0.5 mg PO Q8H PRN PRN Reason: sedation/anxiety Stop: 03/30/21 18:06 Magnesium Hydroxide (Magnesium Hydroxide Susp 30 Ml Udc) 30 ml PO Q24H PRN PRN Reason: Constipation Stop: 03/30/21 18:06 Metoclopramide HCl (Metoclopramide Hcl Inj 5 Mg/Ml 2 Ml Vial) 10 mg IV Q6H PRN PRN Reason: Nausea &/or Vomiting Stop: 03/30/21 18:06 Miscellaneous (Carbohydrates For Hypoglycemia ) 15 - 30 gm PO UD PRN PRN Reason: Hypoglycemia Treatment Stop: 03/30/21 18:59 Miscellaneous Information (Pharmacy Glycemic Mgmt Consult) 1 ea N/A UD PRN PRN Reason: Consult Stop: 03/30/21 18:09 Multivitamins/Minerals (Calcium 600mg + Vit D 400 Iu Tab) 1 tab PO BID JANINE Stop: 03/30/21 20:59 Last Admin: 03/01/21 08:07 Dose: 1 tab Documented by: Naloxone HCl (Naloxone Hcl 0.4 Mg/1 Ml Vial/Carp) 0.1 mg IV Q5M PRN PRN Reason: Oversedation/respiratory dep Stop: 03/30/21 18:06 Ondansetron HCl (Ondansetron Inj 2 Mg/Ml 2 Ml Vial) 4 mg IV Q6H PRN PRN Reason: Nausea &/or Vomiting Stop: 03/30/21 18:06 Ondansetron HCl (Ondansetron 4 Mg Od Tab) 4 mg PO Q6H PRN PRN Reason: Nausea Stop: 03/30/21 18:06 Oxycodone/Acetaminophen (Oxycodone/Acetaminophen 5mg/325mg Tab) 1 - 2 tab PO Q4H PRN PRN Reason: Pain & Pre PT Stop: 03/14/21 18:06 Pneumococcal Polyvalent Vaccine (Do Not Administer Pneumococcal Vaccine) 1 ea N/A PRN PRN PRN Reason: Notification Stop: 03/30/21 18:06 Polyethylene Glycol (Polyethylene (Miralax) 17 Gm Pack) 17 gm PO Q6 JANINE Stop: 03/31/21 05:59 Last Admin: 03/01/21 06:21 Dose: 17 gm Documented by: Senna/Docusate Sodium (Docusate Sodium/Senna 50/8.6mg Tab) 2 tab PO HS JANINE Stop: 03/30/21 20:59 Last Admin: 02/28/21 20:38 Dose: 2 tab Documented by: Sodium Biphosphate/Sodium Phosphate (Sod Phosphate/Sod Biphosphate Enema 132 Ml Btl) 132 ml MA ONE PRN PRN Reason: Constipation Stop: 03/30/21 18:06 Tapentadol (Tapentadol Hcl Er 50 Mg Tabcr) 150 mg PO BID JANINE Stop: 03/14/21 20:59 Last Admin: 03/01/21 09:36 Dose: 150 mg Documented by: Tizanidine HCl (Tizanidine Hcl 4 Mg Tablet) 4 mg PO HS JANINE Stop: 03/30/21 20:59 Last Admin: 02/28/21 20:38 Dose: 4 mg Documented by: Vitamin B Complex (Vitamin B Complex Tab) 1 tab PO DAILY JANINE Stop: 03/31/21 08:59 Last Admin: 03/01/21 08:07 Dose: 1 tab Documented by:
[2021-03-01] MEDS ORDERED: tiZANidine HCL 4 MG TABLET PO PRN (12:56)
--- NOTE | 2021-03-01 15:27 | Pharmacy Report ---
Pharmacy Glycemic Short Note 2 - Date of Service March 01, 2021 - Glycemic Short BSG Results (Last 24 hours): 02/28/21 02/28/21 02/28/21 16:29 19:06 21:49 Glucose POC Glucose 248 H 249 H 272 H 03/01/21 03/01/21 03/01/21 06:14 07:48 11:56 Glucose 167 H POC Glucose 194 H 276 H OUTPATIENT ANTIDIABETIC REGIMEN: * metformin 1000 mg PO BIDM * HbA1c = 8.1% on 03/01/21 ASSESSMENT: 03/01/21: * Pt received total 60 units of insulin yesterday; 35 units basal and 25 units bolus. * The basal insulin covered some of the steroid induced hyperglycemia yesterday. This should be wearing off by now. * Fasting BSG was 194 today. Small dose of Lantus based on weight and stress of 1 added this AM. * Post prandial BSG also elevated. CR was tightened for lunch. * Home Metformin BID resumed with dinner. Novolog CR therefore removed. 02/28/21: * SW is a 50 year old male pod #0 s/p lumbar decompression * Received IV dexamethasone in OR * Postop BSG of 249 mg/dL * Will use aggressive Novolog parameters with overnight checks tonight * 0.4 unit/kg basal today to help cover steroids PLAN FOR INPATIENT GLYCEMIC CONTROL: * Hold outpatient oral diabetes medications * Basal insulin * Lantus 35 units SQ x 1 * Reassess in AM * Bolus insulin * NovoLog per scale ACHS or Q6hrs while NPO * Goal Range: Low 110 mg/dL - High 140 mg/dL * Correction Factor: 20 mg/dL/unit * Nutritional / Prandial insulin per carb ratio of 1 unit per 5 grams CHO consumed PLAN FOR DISCHARGE: HbA1c = 8.1% indicates not adequately controlled diabetes. Goal A1c is less than 7%. Recommend addition of another agent such as Januvia 100 mg PO once daily for A1c lowering.
[2021-03-01] MEDS: metFORMIN HCL 500 MG TAB PO SCH (18:03)
[2021-03-01] MEDS: oxyCODONE/ACETAMINOPHEN 5mg/325mg TAB PO PRN (19:30)
[2021-03-01] MEDS: GABAPENTIN 600 MG TAB PO SCH (20:43)
[2021-03-01] MEDS: DOCUSATE SODIUM/SENNA 50/8.6MG TAB PO SCH (20:43)
[2021-03-01] MEDS: ATORVASTATIN 20 MG TAB PO SCH (20:43)
[2021-03-01] MEDS: DULoxetine HCL 60 MG CAP PO SCH (20:43)
[2021-03-02] MEDS: POLYETHYLENE (MIRALAX) 17 GM PACK PO SCH ×4 (06:14→23:20)
--- NOTE | 2021-03-02 06:45 | Orthopedic Progress Note ---
Date of Service March 02, 2021 Assessment & Plan (1) Status post spinal surgery: Plan: mobility today monitor drain output today with possible d/c this PM possible d/c home tomorrow AM if mobilizing well; PT and case management involved Admission and Anticipated Discharge Date Admission Date: February 28, 2021 Subjective pain well controlled. used minimal narcotics overnight no new numbness/weakness doing stairs with PT today Hgb pending this AM Glucose 202 yesterday evening, pharmacy diabetes team involved hospitalist following Physical Exam Physical Exam: vitals: see vital signs section; on home BiPAP overnight dressing: mild serosang discharge drain: 70 deep/0 superficial cc/8hr overnight; 0/0 this AM vascular: no calf tenderness or swelling bilaterally. no signs of DVT Musculoskeletal: 5/5 motor strength bilateral L2-S1 except right L2 4/5, left L5 4/5, right S1 4/5, left S1 4+/5. Neurologic: Sensation intact to light touch bilateral L2-S1 except right S1 1/2. Results & Data ([facility]) Vital Signs (Past 12 Hours) Vital Signs Temp Pulse Pulse Resp BP Pulse Ox 03/02/21 02:54 102 H 18 92 03/01/21 22:42 37.1 C 92 H 18 152/85 H 93 Diagnostic Findings AP and lateral lumbar spine x-rays independently reviewed/interpreted. Findings: appropriate placement of new hardware L2, L3 and L4 and rods across L2-S1 on left and L2-L4 on right. PG Care Time/CCT Total # of Minutes Spent Total Time Spent with Patient: Total time spent is greater than 50% in coordination of care (as documented) at patient's floor/unit and/or counseling patient: Coding Level of Care Code None Diagnoses Status post spinal surgery Z98.890
[2021-03-02 07:02] LABS: Hematocrit (blood only) 30.7 % (42-52); Hemoglobin 10.3 g/dL (14.0-18.0); Mean Corpuscular Hemoglobin 29.4 pg (25-34); Mean Corpuscular Hgb Conc 33.6 g/dL (32-36); Mean Corpuscular Volume 87.7 fL (80-100); Mean Platelet Volume 11.2 fL (7.4-10.4); Platelet Count 124 K/uL (130-400); RDW Coefficient of Variation 13.7 % (11.5-14.5); White Blood Count 10.67 K/uL (4.8-10.8)
[2021-03-02] MEDS: ATENOLOL 50 MG TABLET PO SCH ×2 (07:40→21:56)
[2021-03-02] MEDS: metFORMIN HCL 500 MG TAB PO SCH ×2 (07:41→17:32)
[2021-03-02] MEDS: CALCIUM 600MG + VIT D 400 IU TAB PO SCH ×2 (07:41→21:56)
[2021-03-02] MEDS: GABAPENTIN 300 MG CAP PO SCH (07:41)
[2021-03-02] MEDS: LISINOPRIL/HCTZ 20/25MG 1 TAB PO SCH (07:41)
[2021-03-02] MEDS: VITAMIN B COMPLEX TAB PO SCH (07:41)
[2021-03-02] MEDS: FAMOTIDINE 20 MG TAB PO SCH ×2 (07:41→17:58)
[2021-03-02 07:43] LABS: BUN Creatinine Ratio 22.5 (10-20); C Reactive Protein 7.5 mg/dl (0-0.29); Calcium 8.4 mg/dl (8.5-10.1); Est GFR (African American) 130.8 ml/min; Est GFR (Non-African American) 112.8 ml/min; Potassium 4.1 mmol/L (3.5-5.1)
[2021-03-02] MEDS: INSULIN GLARGINE SOLOSTAR 100 UNITS/ML 3 ML PEN SC SCH (07:44)
[2021-03-02] MEDS: INSULIN ASPART 100 UNITS/ML 3 ML PEN SC SCH ×4 (07:45→21:56)
[2021-03-02] MEDS ORDERED: bisacodyL 10 MG SUPP PR PRN (08:00)
[2021-03-02] MEDS: oxyCODONE/ACETAMINOPHEN 5mg/325mg TAB PO PRN ×2 (08:57→14:58)
[2021-03-02] MEDS: TAPENTADOL HCL ER 50 MG TABCR PO SCH ×2 (09:44→21:56)
--- NOTE | 2021-03-02 14:16 | Hospitalist Progress Note ---
Date of Service March 02, 2021 Assessment & Plan (1) Neurogenic claudication due to lumbar spinal stenosis: (2) Status post spinal surgery: Plan: s/p lumbar decompression by Dr. Erwin MONZON 1900 POD #2 Doing okay this morning. Pain management/DVT prophylaxis as per primary team. Drain likely to be removed later today and discharge tomorrow. Continue to work with PT/OT. (3) DMII (diabetes mellitus, type 2): Plan: Post-operative hyperglycemia noted as a result of intraoperative dexamethasone administration. Continue glycemic management as per pharmacy. Continue insulin sliding scale AC at bedtime. Lantus 15 units at bedtime. Hemoglobin A1c of 8.1. Continue Metformin at discharge. Will consult clinical unit educator. 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 PRN oxycodone. (6) High cholesterol: Plan: c/w fishing captain atorvastatin. (7) MECHE (obstructive sleep apnea): Plan: Cont CPAP qHS (8) DVT prophylaxis: Plan: SCDs/ambulation Full Code Dispo-per Ortho spine surgeon Thank you for this consultation. We will continue to follow with the patient throughout this hospital stay. Admission and Anticipated Discharge Date Admission Date: February 28, 2021 Subjective Doing okay this morning. Reports pain is better controlled. Denies any chest pain, shortness of breath, palpitations or any dizziness. Have been ambulating. Did have a bowel movement. Rest of the review of system is negative. Review of Systems Review of Systems: All systems reviewed & are unremarkable except as noted in HPI & below Physical Exam Physical Exam: General: A&Ox3 HENT: NCAT, MMM, EOMI Eyes: PERRLA Neck: Supple, normal range of motion CVS: normal rate and rhythm Resp: b/l good breath sounds Abdomen: Soft, ND/NT, +BS Extremities: No c/c/e Neuro: face symmetric, strength grossly equal, no focal deficit Skin: warm and dry, no rashes/lesions/errythema Back: dressing intact, drain in place Results & Data Results & Data ([facility]) Vital Signs (Past 12 Hours) Vital Signs Temp Pulse Pulse Resp BP Pulse Ox 03/02/21 07:27 37.2 C 86 20 138/77 93 03/02/21 02:54 102 H 18 92 Laboratory Results Laboratory Results - last 24 hr 03/01/21 03/01/21 03/02/21 16:37 20:38 06:45 WBC 10.67 RBC 3.50 L Hgb 10.3 L Hct 30.7 L MCV 87.7 MCH 29.4 MCHC 33.6 RDW Std Deviation 44.0 RDW Coeff of Alejandro 13.7 Plt Count 124 L MPV 11.2 H Sodium Potassium Chloride Carbon Dioxide Anion Gap BUN Creatinine Est Cr Clr Drug Dosing Est GFR ( Amer) Est GFR (Non-Af Amer) BUN/Creatinine Ratio Glucose POC Glucose 123 H 202 H Calcium C-Reactive Protein 03/02/21 03/02/21 03/02/21 06:45 07:23 11:51 WBC RBC Hgb Hct MCV MCH MCHC RDW Std Deviation RDW Coeff of Alejandro Plt Count MPV Sodium 137 Potassium 4.1 Chloride 103 Carbon Dioxide 30 Anion Gap 4.0 BUN 15 Creatinine 0.67 Est Cr Clr Drug Dosing 167.0 Est GFR ( Amer) 130.8 Est GFR (Non-Af Amer) 112.8 BUN/Creatinine Ratio 22.5 H Glucose 168 H POC Glucose 158 H 160 H Calcium 8.4 L C-Reactive Protein 7.50 H
[2021-03-02] MEDS: GABAPENTIN 600 MG TAB PO SCH (21:56)
[2021-03-02] MEDS: ATORVASTATIN 20 MG TAB PO SCH (21:56)
[2021-03-02] MEDS: DOCUSATE SODIUM/SENNA 50/8.6MG TAB PO SCH (21:56)
[2021-03-02] MEDS: DULoxetine HCL 60 MG CAP PO SCH (21:56)
[2021-03-03 05:51] VITALS: PULSE 76; TEMP 98.8; O2SAT 93
[2021-03-03] MEDS: POLYETHYLENE (MIRALAX) 17 GM PACK PO SCH ×2 (05:51→13:02)
[2021-03-03] MEDS: oxyCODONE/ACETAMINOPHEN 5mg/325mg TAB PO PRN ×2 (07:33→13:29)
[2021-03-03] MEDS: TAPENTADOL HCL ER 50 MG TABCR PO SCH (07:34)
[2021-03-03] MEDS: ATENOLOL 50 MG TABLET PO SCH (07:34)
[2021-03-03] MEDS: CALCIUM 600MG + VIT D 400 IU TAB PO SCH (07:35)
[2021-03-03] MEDS: VITAMIN B COMPLEX TAB PO SCH (07:35)
[2021-03-03] MEDS: LISINOPRIL/HCTZ 20/25MG 1 TAB PO SCH (07:35)
[2021-03-03] MEDS: metFORMIN HCL 500 MG TAB PO SCH (07:36)
[2021-03-03] MEDS: INSULIN GLARGINE SOLOSTAR 100 UNITS/ML 3 ML PEN SC SCH (07:38)
[2021-03-03] MEDS: GABAPENTIN 300 MG CAP PO SCH (07:38)
[2021-03-03] MEDS: INSULIN ASPART 100 UNITS/ML 3 ML PEN SC SCH ×2 (07:39→13:10)
--- NOTE | 2021-03-03 08:13 | Orthopedic Progress Note ---
Date of Service March 03, 2021 Assessment & Plan (1) Status post spinal surgery: Plan: d/c this AM after morning PT and once confirmed hospitalist and pharmacy glycemic consult home diabetes management plan f/u 2 weeks as previously scheduled dressing to be changed prior to discharge please Admission and Anticipated Discharge Date Admission Date: February 28, 2021 Subjective pain well controlled. used minimal narcotics overnight no new numbness/weakness mobilizing well Glucose 158 this AM, pharmacy diabetes team involved hospitalist following Physical Exam Physical Exam: vitals: see vital signs section; on home BiPAP overnight dressing: mild serosang discharge from drain sits drain: removed yesterday PM vascular: no calf tenderness or swelling bilaterally. no signs of DVT Musculoskeletal: 5/5 motor strength bilateral L2-S1 except right L2 4/5, left L5 4/5, right S1 4/5, left S1 4+/5. Neurologic: Sensation intact to light touch bilateral L2-S1 except right S1 1/2. Results & Data ([facility]) Vital Signs (Past 12 Hours) Vital Signs Temp Pulse Pulse Resp BP Pulse Ox 03/03/21 05:50 37.1 C 76 18 130/84 93 03/03/21 03:01 89 13 94 03/02/21 22:43 90 18 94 03/02/21 21:44 37.4 C 94 H 18 153/81 H 92 PG Care Time/CCT Total # of Minutes Spent Total Time Spent with Patient: Total time spent is greater than 50% in coordination of care (as documented) at patient's floor/unit and/or counseling patient: Coding Level of Care Code None Diagnoses Status post spinal surgery Z98.890
[2021-03-03] MEDS: FAMOTIDINE 20 MG TAB PO SCH (08:23)
--- NOTE | 2021-03-03 09:41 | Pharmacy Report ---
Pharmacy Glycemic Short Note 2 - Date of Service March 03, 2021 - Glycemic Short BSG Results (Last 24 hours): 03/02/21 03/02/21 03/02/21 11:51 17:16 20:04 POC Glucose 160 H 190 H 201 H 03/03/21 07:03 POC Glucose 158 H OUTPATIENT ANTIDIABETIC REGIMEN: * metformin 1000 mg PO BIDM * HbA1c = 8.1% on 03/01/21 ASSESSMENT: 03/03/21: * Pt received total of 24 units of insulin yesterday; 15 units basal + 9 units bolus * Fasting BSG today was 158 mg/dl, same as yesterday. Continued basal at same dose. * Home Metformin was resumed with dinner on the , but post-prandial BSGs were still elevated yesterday. * Added back a loose carb ratio for Novolog starting with breakfast today. * Patient may need an additional oral agent on discharge for optimum blood sugar control. 03/01/21: * Pt received total 60 units of insulin yesterday; 35 units basal and 25 units bolus. * The basal insulin covered some of the steroid induced hyperglycemia yesterday. This should be wearing off by now. * Fasting BSG was 194 today. Small dose of Lantus based on weight and stress of 1 added this AM. * Post prandial BSG also elevated. CR was tightened for lunch. * Home Metformin BID resumed with dinner. Novolog CR therefore removed. 02/28/21: * SW is a 50 year old male pod #0 s/p lumbar decompression * Received IV dexamethasone in OR * Postop BSG of 249 mg/dL * Will use aggressive Novolog parameters with overnight checks tonight * 0.4 unit/kg basal today to help cover steroids PLAN FOR INPATIENT GLYCEMIC CONTROL: * Metformin 1000 mg PO BID with meals * Basal insulin * Lantus 15 units SQ qAM * Bolus insulin: added back loose Carb Ratio * NovoLog per scale ACHS or Q6hrs while NPO * Goal Range: Low 110 mg/dL - High 140 mg/dL * Correction Factor: 20 mg/dL/unit * Nutritional / Prandial insulin per carb ratio of 1 unit per 15 grams CHO consumed PLAN FOR DISCHARGE: HbA1c = 8.1% indicates not adequately controlled diabetes. Goal A1c is less than 7% based on age and co-morbidities. Recommend addition of another agent such as Januvia 100 mg PO once daily for A1c lowering.
--- NOTE | 2021-03-03 11:06 | Hospitalist Progress Note ---
Date of Service March 03, 2021 Assessment & Plan (1) Neurogenic claudication due to lumbar spinal stenosis: (2) Status post spinal surgery: Plan: s/p lumbar decompression by Dr. Erwin MONZON 1900 POD #3 Doing okay this morning. Pain management/DVT prophylaxis as per primary team. Continue to work with PT/OT. Patient likely to be discharged today (3) DMII (diabetes mellitus, type 2): Plan: Post-operative hyperglycemia noted as a result of intraoperative dexamethasone administration. Continue glycemic management as per pharmacy. Continue insulin sliding scale AC at bedtime. Lantus 15 units at bedtime. Hemoglobin A1c of 8.1. Continue Metformin at discharge, added Januvia as well. Okay to discharge from medicine. 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 PRN oxycodone. 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 (7) MECHE (obstructive sleep apnea): Plan: Cont CPAP qHS (8) DVT prophylaxis: Plan: SCDs/ambulation Full Code Dispo-per Ortho spine surgeon Thank you for this consultation. We will continue to follow with the patient throughout this hospital stay. Admission and Anticipated Discharge Date Admission Date: February 28, 2021 Subjective Patient is doing okay this morning. Denies any significant pain. Have been ambulating without any issues. Have had a bowel movement. Drain has been removed. Rest of the review of system is negative. Review of Systems Review of Systems: All systems reviewed & are unremarkable except as noted in HPI & below Physical Exam Physical Exam: General: A&Ox3 HENT: NCAT, MMM, EOMI Eyes: PERRLA Neck: Supple, normal range of motion CVS: normal rate and rhythm Resp: b/l good breath sounds Abdomen: Soft, ND/NT, +BS Extremities: No c/c/e Neuro: face symmetric, strength grossly equal, no focal deficit Skin: warm and dry, no rashes/lesions/errythema Back: dressing intact, drain in place Results & Data Results & Data ([facility]) Vital Signs (Past 12 Hours) Vital Signs Temp Pulse Pulse Resp BP Pulse Ox 03/03/21 05:50 37.1 C 76 18 130/84 93 03/03/21 03:01 89 13 94 Laboratory Results Laboratory Results - last 24 hr 03/02/21 03/02/21 03/02/21 11:51 17:16 20:04 POC Glucose 160 H 190 H 201 H 03/03/21 07:03 POC Glucose 158 H
--- NOTE | 2021-03-03 13:01 | Discharge Summary ---
Date of Service March 03, 2021 Principal Diagnosis neurogenic claudication Discharge Data Allergies Allergy/AdvReac Type Severity Reaction Status Date / Time No Known Allergies Allergy Unknown Verified 02/28/21 05:29 Consultations 02/28/21 18:07 Consult Hospitalist Routine Procedures Performed Operation Date: 02/28/21 07:15 Actual Procedures p POSTERIOR LUMBAR DECOMPRESSION L2-L4, REVISION POSTERIOR LUMBAR FUSION L2- S1(Not Applicable) - Tino Hood MD s REMOVAL OF HARDWARE L4-S1,(Not Applicable) - Tino Hood MD Hospital Course (1) Status post spinal surgery: Patient underwent the above mentioned procedure. There were no complications noted intra-op. Post-operatively, patient was sent to recovery and then floor. Pain was well-controlled throughout stay. Drain was removed on post-op day 2. Patient was followed closely by hospitalist service throughout stay and was cleared for discharge medically by this team. He was started on additional diabetes medications by the hospitalist team. Patient was able to ambulate, void, and tolerate PO intake at time of discharge. Verbal discharge and follow-up instructions were given. Total Time Total Time Spent Total Time Spent (In Minutes): 25 Discharge Plan Discharge Items Patient Disposition: Home - Self-Care Reason For Visit: Neurogenic Claudication Discharge Diagnosis: Neurogenic Claudication Activity: Per Instructions section Non-emergency contact: Surgeon Call non-emergency contact if: you have any medication questions Follow-up/Referrals: Quentin Nieto MD [Primary Care Provider] - Diet: Carb Consistent or DM2 Addtl Attending Provider Instructions: Posterior Lumbar Decompression and Fusion (PLDF) Recovery What to expect You've had surgery, the first step toward the goals of decreasing back and leg pain, and stopping symptoms of nerve compression or an unstable spine from getting worse. Now it's time to focus on healing. By following these tips, you will set yourself up for a successful outcome after surgery. Top 4 things to know 1. A moderate or increased amount of back pain is expected after PLDF surgery. This will get better over the next four to six weeks. 2. Leg pain usually gets better after surgery, but may not be completely gone. Numbness, tingling and weakness take longer to get better after surgery. This is normal. 3. Do not use nicotine for at least three months. Nicotine will slow down your healing. 4. Avoid taking anti-inflammatory medications (NSAIDs) for six to 12 weeks or until your surgeon tells you it's safe to use them. NSAIDs include ibuprofen (Motrin. Advil), naproxen (Aleve. Naprosyn), meloxicam (Mobic), Celebrex and diclofenac. Pain and weakness Surgical back pain and muscle spasms are normal after spine surgery. This should get better over the next few weeks. Numbness, tingling and weakness that you had before surgery may take time to improve. Taking care of your incision Your incision may bleed and your dressing may get saturated with blood. This is normal. Change your dressing as often as needed to keep the incision clean and dry. If your incision has no drainage, you can take your dressing off three days after surgery, but always keep the incision area clean and dry. If you have skin glue or tape on your incision, try to leave it in place for the first two weeks. Showering You can take a shower three days after surgery once the incision is closed and doesn't have drainage. Let gentle soap and water run over the incision. Do not scrub it. Pat dry with a clean towel. Avoid taking tub baths, swimming and going in hot tubs until the incision is completely healed (four to six weeks). Taking medication Do not take anti-inflammatory medications (NSAIDs) for six to 12 weeks after surgery. These drugs can interfere with how you heal. NSAIDs include ibuprofen, Advil, Aleve, naproxen, Naprosyn, Mobic, meloxicam, Celebrex and diclofenac. If you need refills on your prescriptions, you may contact our office at least two days before you are out of pills so we have sufficient time to process your request. Refill requests on Sunday afternoons and holidays likely will be addressed on the next day Start weaning yourself from pain medications as soon as you are able. Remember, pain is a natural part of the healing process. The goal is not to eliminate all pain but to keep you comfortable as you heal. Pain medications should be used only for a short period of time. Before taking Tylenol (acetaminophen), be aware that your pain medication probably has acetaminophen in it. Taking additional Tylenol or acetaminophen can put you over the daily recommended 3,000 milligrams, which can harm your liver. If you are taking a muscle relaxant, one of the side effects is drowsiness. If you feel too drowsy to safely get up and move around, take the muscle relaxant less often. Do not use tobacco products If you had been a smoker or used tobacco, you were required to stop before surgery. You've come this far, so why not quit for good. If you cannot do so, you must not use tobacco products for at least three months. Nicotine will keep you from properly healing. Be active, but no lifting We want you to be active as soon as you get home from the hospital Get up and walk often. If you go up and down stairs, make sure you hold onto the railing and have someone with you. Avoid excessive bending and twisting your back as much as you can, and do not lift anything over 10 pounds until your surgeon says it's OK. And no driving You cannot drive until you are no longer taking narcotic pain medications or muscle relaxants and you can move well enough to be safe behind the wheel. Most patients can begin driving after the 6 week postoperative appointment. Your surgeon will let you know when you can start driving. Constipation and bloating Constipation is a common side effect of taking narcotic pain medication and a good reason to begin tapering yourself off of pain medication as soon as you can. Drink lots of fluids, be active and eat foods high in fiber to help relieve c onstipation. If constipation is bothering you, a stool softener or laxative may help. Try one of the following, and always follow the instructions: Milk of Magnesia, MiraLAX, Dulcolax suppository, Fleet enema, magnesium citrate Follow up with your primary care provider If you have any health concerns, see your primary care provider within one week after surgery, especially if you have any of the following: Heart disease or have had a stroke Lung disease Diabetes Are over age 65 Take a blood thinner Take more than 10 prescription medications When is it an emergency? If you have any of the following symptoms, call 911 or go to an emergency room right away: Trouble breathing Chest pain Significant new weakness since your surgery If you have any other concerns, call our office at [phone] before going to an emergency room. In most cases we can help you or get you an appointment quickly. Addtl Manufacturing Engineer Chief Provider Instructions: Continue taking Metformin. Start taking Jardiance 25 mg daily. Please follow-up with the tobacco educator as an outpatient. Pending Studies at Discharge: No Stand-Alone Forms: My [facility] Medications and DC Order Prescriptions: New oxycodone-acetaminophen [Percocet] 5-325 mg Tablet 1 - 2 tab PO Q4H PRN (Reason: pain) Qty: 30 RF: 0 oxycodone-acetaminophen [Percocet] 5-325 mg tablet 1 tab PO Q4H Qty: 20 RF: 0 Jardiance 25 mg tablet 25 mg PO DAILY Qty: 30 RF: 0 Continued atenolol 50 mg tablet 50 mg PO BID RF: 0 Nucynta ER 150 mg tablet extended release 12 hr 150 mg PO BID RF: 0 cimetidine 400 mg tablet 400 mg PO BID RF: 0 tizanidine [Zanaflex] 4 mg capsule 4 mg PO HS RF: 0 duloxetine 60 mg capsule,delayed release(DR/EC) 60 mg PO QPM RF: 0 atorvastatin 20 mg tablet 20 mg PO QPM RF: 0 gabapentin 300 mg capsule 600 mg PO HS RF: 0 lisinopril-hydrochlorothiazide 20-25 mg Tablet 1 tab PO QAM RF: 0 gabapentin 300 mg Tablet 300 mg PO QAM RF: 0 metformin 1,000 mg Tablet 1,000 mg PO BID RF: 0 vitamin B complex-vit B12 1,000 mg PO DAILY RF: 0 Vitamin D (with calcium) 1 tab PO BID RF: 0 Discontinued meloxicam [Mobic] 7.5 mg tablet 15 mg PO HS RF: 0 Discharge Orders: Discharge Order (Routine); Ordered 03/03/21 Ordered By: Tino Dejesus/Other Patient Handouts: A1C, Managing Type 2 Diabetes Admission Data Admit Date/Time: 02/28/21 16:36 Attending Provider: Tino Hood Admit Provider: Tino Hood Primary Care Provider: Quentin Nieto Other Providers: Porsche Perez ; Ray Kate ; Catherine Richards ; uJne Blake ; Minal Rolon ; Wendi Roper ; Ce Hutson ; Kevin Willams ; Ko Mazariegos ; Ray Lamb ; Brianna Ortiz ; Anna Michael ; Manjinder Saavedra ; Sarah Canada ; Jacklyn Sesay ; Will Lemons ; Ally Brown ; Lisa Salazar ; Gurdeep Thompson ; Annalisa Choi I. ; Nuno Shook ; Ruddy Cutler Coding Level of Care Code D/C DAY MANAGEMENT <30 MINS Diagnoses Status post spinal surgery Z98.890 Time Spent (min) 25
[2021-03-03 13:24] VITALS: BP 138/77
--- NOTE | 2021-03-05 21:19 | Operative Report ---
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 Removal of hardware posterior lumbar spine - bilateral L4 screws, bilateral rods and all set screw 2. Posterolateral Lumbar Fusion L2-L4 3. Bilateral posterior lumbar laminectomy L2-3, L3-4, medial facetectomies and foraminotomies 4. Posterior Lumbar Instrumentation L2-S1 4. Local Autograft for posterior lumbar fusion 5. Allograft, morselized (DBM) Surgeon Tino Hood MD Delinquency Prevention Officer Khoa Sosa PA-C Estimated Blood Loss 1,900 Findings Consistent with Post-Op Diagnosis Specimens none Description of Procedure Indications: Patient is a 50 year old male who presented to my clinic on Aug 16 with neurogenic claudication symptoms in context of previous anterior and posterior fusion surgery from L4-S1 with subsequent revision surgery for pseudarthrosis remotely. MRI imaging was completed and consistent with adjacent level disease with moderate-severe central stenosis at L2-3 and L3-4. Non-operative management including SAMRA injection was maximized. Patient was seen in follow-up on February 09, having exhausted non-operative management with continued functional limitations from his symptoms. A discussion was had with the patient with regards to surgical management. Informed consent was obtained and patient was booked for above procedure. On day of surgery, patient was identified in pre-op holding area. History and Physical was updated, surgical site was marked, and consent was confirmed. Risks, benefits and alternatives were discussed again and I answered all their questions. Implants inserted: 1. Medtronic Solera Spinal System L2: left 40mmx5.5mm, right 40mmx5.5mm polyaxial screw L3: left 40mmx6.5.5mm, right 40mmx6.5mm polyaxial screw L4: left 45mmx6.5mm, right 45mmx6.5mm polyaxial screw 5.5mm Chromaloy Yves, Cut and bent in OR to length and shape x 2 left yves from L2 to S1 right yves from L2 to L4 2. Medtronic Sibley DBM Implants removed: 1. Medtronic Legacy rods x2 and all set screws 2. Medtronic Legacy screws x2 (from L4 level, [id number]) Drains: 1. Hemovac drain x 2 (10 [place]), one deep and one superficial to fascia Description of procedure: Patient was brought to the operating room and underwent general anesthesia. SCDs were applied to bilateral legs to reduce risk of DVT. Patient was place prone on a Jeffry table. Face, eyes, bony prominences, and peripheral nerves were well protected. The lumbar spine was prepped with alcohol and Chloraprep and draped in standard sterile fashion. A time-out was performed and documented. This included confirmation of administration of prophylactic antibiotics. Two spinal needle was inserted and a lateral xray taken to localize the incision start and end point. Previous incision was utilized and extended proximally. The incision was carried through the subcutaneous tissue with cautery. The fascia was incised and subperiosteal dissection carried over the lamina. Previous hardware was identified. Screws were covered with bone and a rongour and curette was utilized to exposed the screw heads and set screws. Set screws were removed and both rods were removed. Extensive bony bridging was identified along the medial and lateral aspects of the screws. The previous surgical levels were found to be stable with no motion and clear evidence of bridging bone bilaterally. Screws at the L4 level were removed via burring of some of the surrounding bone to allow for mobility of the polyaxial screw heads to achieve appropriate alignment for screw regional owner operator truck driver insertion. No loosening of the screws were noted. Attempt was made at repositioning of the remaining more distal screws to allow for removal. It was determined through inspection that to allow for mobility of the head of the screws, extensive amount of bone needed to be removed. To avoid compromising previous fusion levels, a decision was made to leave remaining old hardware in. Attention was then placed in instrumenting proximal levels. Facet capsules were dissected off of all levels being fused. Dissection was carried out to the lateral gutters with all involved transverse processes on each side dissected in full posteriorly. Facetectomies were performed of the included level bilaterally with an osteotome. Freehand pedicle screws were then placed bilaterally from L2 to L4. For L4 level, previous screw holes were palpated, and screws of the same length and diameter were inserted using the same trajectory. For remaining screws, screw tracts were started with a 3mm matchstick drill. Trajectory was assessed using the previous localizing lateral x-ray for each level along with pre-op templating using x-ray and advanced imaging. A curved pedicle probe was used gently to identify appropriate trajectory to the length of the screw, followed by palpation with a pedicle feeler, tapping, re-palpation, burring of the transverse process posterior surface for fusion, and insertion of the screws. Lateral and AP portable x-rays confirmed satisfactory position of all screws. Triggered EMG confirmed no activity on all screws up to a threshold of 20mA. I then proceeded with decompressing the central thecal sac and the traversing and exiting nerve roots. A high speed stevo was used to perform a bilateral laminectomy of inferior L2 and L3 lamina up to the insertion of the ligamentum flavum. An up-angled curette was used to free the ligamentum flavum from its cranial and caudal attachments and it was removed with Kerrison rongeurs. Partial medial facetectomies and foraminotomies were performed using a stevo and Kerrison rongeurs to open up the lateral recess and decompress the traversing and exiting nerve roots bilaterally. At the conclusion of the decompression, a ball-tipped probe was able to be freely passed into the foramens and through the lateral recesses. I then cut straight rods for each side and contoured it prior to insertion. Given compatibility of the previous hardware with the new hardware, I decided to extend the yves to those levels. On the left side, this was successful. On the right side, the old screw heads were found to be worn with set screws not being able to be torque-tightened. As such, the yves on the right side was shortened to only include the newly inserted screws. The wound was then copiously irrigated. No spinal fluid leaks were identified. Local bone that had been saved from the spinous process, lamina, and facets was morselized in a bone mill. I decorticated the contralateral facet joint and performed posterolateral bone grafting. Local autograft and Alla DBM allograft was inserted in bilateral gutters between the transverse processes and in the facet joints from L2 to L4. The wound was assessed for any sources of bleed and hemostasis was achieved prior to closure. To reduce risk of post-op infection, 2g of vancomycin powder was applied to the deep and superficial layers prior to closure. Deep and superficial drains were placed. The wound was closed in layers with #1 Vicryl for fascia, 2-0 Vicryl sutures for subcutaneous superficial closure and 3-0 Stratafix suture for subcuticular superficial closure. Steri-strips and sterile dressings were applied. The patient was then flipped supine, awakened and taken to the recovery room in stable condition. Neuromonitoring was performed throughout the case using EMG and triggered EMG as above. There were no intra-operative complications noted. Sponge and needle counts were correct x2 at the conclusion of the case. I attest to the content of the Intraoperative Record and any orders documented therein. Any exceptions are noted below.
== END 2021-03-03 15:00 | disposition home or self-care (01) | DRG 460 ==
LOC: ASU 05:08 → 3N 16:36